=== PATIENT | male | born 1980 | race Hispanic/Latino ===

== ENCOUNTER 2018-12-04 14:42 | Emergency (ER) | payer BC, SELFPAY ==
[2018-12-04] MEDS ORDERED: Ketorolac Tromethamine 60 MG/2 ML VIAL ONE (14:58)
== END 2018-12-04 15:15 | disposition home or self-care (01) ==
LOC: NAV ERS 14:42
DX: M79.89 Other specified soft tissue disorders (principal)
CPT/HCPCS: 96372; J1885